=== PATIENT | male | born 1980 | race American Indian/Alaskan Native ===

== ENCOUNTER 2018-11-18 06:35 | Emergency (ER) | payer OTHER ==
[2018-11-18 07:10] LABS: Hematocrit 42.6 % (35.5-45.6); Hemoglobin 15.1 gm/dl (11.8-15.2); Mean Corpuscular HGB Conc 35 % (32-34); Mean Corpuscular Volume 90 fl (84-94); Platelet Count 237 K/mm3 (140-440); Red Blood Count 4.72 M/mm3 (3.65-5.03)
[2018-11-18 07:30] LABS: BUN/Creatinine Ratio 23; Blood Urea Nitrogen 14 mg/dL (9-20); Calcium 8.4 mg/dL (8.4-10.2); Hemolysis Index 8
[2018-11-18] MEDS ORDERED: THERAGRAN Tab PO ONE ×4 (08:36→17:39)
[2018-11-18] MEDS ORDERED: NACL 0.9% 1000 ML 1,000 ML IV ONE (08:36)
[2018-11-18] MEDS ORDERED: VITAMIN B-1 PO ONE ×2 (08:37→17:40)
[2018-11-18] MEDS ORDERED: Renal Caps PO ONE (08:39)
--- NOTE | 2018-11-18 10:59 | Emergency Department Report ---
ED General Adult HPI - General Chief complaint: Seizure Stated complaint: SEIZURE Time Seen by Provider: 11/18/18 08:35 Source: EMS Mode of arrival: Stretcher Limitations: No Limitations - History of Present Illness Initial comments: Patient brought to ED via PD found in the parking lot of as gas station laying on the ground. The patient states he was drinking with friends and denies head injury. -: Sudden Radiation: non-radiation Severity scale (0 -10): 0 Consistency: constant Improves with: none Worsens with: none Associated Symptoms: denies other symptoms Treatments Prior to Arrival: none - Related Data Allergies Allergy/AdvReac Type Severity Reaction Status Date / Time Unable to Assess Allergy Unverified 11/18/18 06:43 ED Review of Systems ROS: Stated complaint: SEIZURE Other details as noted in HPI Constitutional: denies: chills, fever Eyes: denies: eye pain, eye discharge, vision change ENT: denies: ear pain, throat pain Respiratory: denies: cough, shortness of breath, wheezing Cardiovascular: denies: chest pain, palpitations Endocrine: no symptoms reported Gastrointestinal: denies: abdominal pain, nausea, diarrhea Genitourinary: denies: urgency, dysuria Musculoskeletal: denies: back pain, joint swelling, arthralgia Skin: denies: rash, lesions Neurological: denies: headache, weakness, paresthesias Psychiatric: denies: anxiety, depression Hematological/Lymphatic: denies: easy bleeding, easy bruising ED Past Medical Hx - Past Medical History Previous Medical History?: Yes Hx Hypertension: Yes Hx Seizures: Yes Hx Psychiatric Treatment: Yes (depression) - Surgical History Additional Surgical History: unknown - Social History Smoking Status: Current Every Day Smoker Substance Use Type: Alcohol ED Physical Exam - General Limitations: No Limitations General appearance: alert, in no apparent distress, appears intoxicated, other (odor of alcohol) - Head Head exam: Present: atraumatic, normocephalic - Eye Eye exam: Present: normal appearance, PERRL, EOMI - ENT ENT exam: Present: mucous membranes moist - Neck Neck exam: Present: normal inspection - Respiratory Respiratory exam: Present: normal lung sounds bilaterally. Absent: respiratory distress, wheezes, rales - Cardiovascular Cardiovascular Exam: Present: regular rate, normal rhythm. Absent: systolic murmur, diastolic murmur, rubs, gallop - GI/Abdominal GI/Abdominal exam: Present: soft, normal bowel sounds. Absent: distended, tenderness - Rectal Rectal exam: Present: deferred - Extremities Exam Extremities exam: Present: normal inspection - Back Exam Back exam: Present: normal inspection - Neurological Exam Neurological exam: Present: alert, oriented X3, CN II-XII intact. Absent: motor sensory deficit - Psychiatric Psychiatric exam: Present: normal affect, normal mood, anxious - Skin Skin exam: Present: warm, dry, intact, normal color. Absent: rash ED Course Vital Signs 11/18/18 06:43 Temperature 97.6 F Pulse Rate 75 Respiratory 17 Rate Blood Pressure 128/85 Blood Pressure 128/85 [Left] O2 Sat by Pulse 97 Oximetry ED Medical Decision Making - Lab Data Result diagrams: 11/18/18 15:24 11/18/18 15:24 Lab Results 11/18/18 11/18/18 Range/Units 06:58 06:58 WBC 5.2 (4.5-11.0) K/mm3 RBC 4.72 (3.65-5.03) M/mm3 Hgb 15.1 (11.8-15.2) gm/dl Hct 42.6 (35.5-45.6) % MCV 90 (84-94) fl MCH 32 (28-32) pg MCHC 35 H (32-34) % RDW 16.0 H (13.2-15.2) % Plt Count 237 (140-440) K/mm3 Sodium 143 (137-145) mmol/L Potassium 3.8 (3.6-5.0) mmol/L Chloride 102.7 (98-107) mmol/L Carbon Dioxide 26 (22-30) mmol/L Anion Gap 18 mmol/L BUN 14 (9-20) mg/dL Creatinine 0.6 L (0.8-1.5) mg/dL Estimated GFR > 60 ml/min BUN/Creatinine Ratio 23 % Glucose 72 L (75-100) mg/dL Calcium 8.4 (8.4-10.2) mg/dL - Medical Decision Making 2012 applied Patient refused labs Examination of the patient at 1:05 PM: Patient expresses suicidal ideology with the plan of taking by mouth or jump into traffic. Patient states she has a history of paranoid schizophrenia which he initially did not endorse 1013 applied at 4:17p.m. Critical care attestation.: If time is entered above; I have spent that time in minutes in the direct care of this critically ill patient, excluding procedure time. ED Disposition Clinical Impression: Suicidal ideation Disposition: DC/TX-65 PSY HOSP/PSY UNIT Is pt being admited?: Yes Does the pt Need Aspirin: No Condition: Stable Referrals: EDER GOODRICH MD [Primary Care Provider] - 3-5 Days
--- NOTE | 2018-11-18 13:04 | Cat Scan Report ---
PROCEDURE: CT HEAD/BRAIN WO CON TECHNIQUE: Computerized tomography of the head was performed without contrast material. CT DOSE LENGTH PRODUCT: 920.5 mGy-cm. HISTORY: confusion COMPARISONS: None currently available. FINDINGS: There is no evidence for acute ischemia. There is no hemorrhage. There is no midline shift. There is no hydrocephalus. There is no mass. Age appropriate lenz-white matter attenuation is noted. There is no calvarial fracture. The temporal bones demonstrate aerated mastoid air cells. The middle ears appear unremarkable. Paranasal sinuses are unremarkable. Globes are intact. IMPRESSION: * No acute intracranial findings. This document is electronically signed by Pollo Stover MD., Nov 18 2018 01:02:19 PM ET
[2018-11-18 15:38] LABS: Basophils # (Auto) 0.1 K/mm3 (0.0-0.1); Basophils % (Auto) 1.1 % (0.0-1.8); Eosinophils % (Auto) 0.9 % (0.0-4.3); Hematocrit 45.8 % (35.5-45.6); Lymphocytes # (Auto) 1.7 K/mm3 (1.2-5.4); Lymphocytes % (Auto) 34.3 % (13.4-35.0); Mean Corpuscular HGB Conc 35 % (32-34); Mean Corpuscular Volume 90 fl (84-94); Monocytes # (Auto) 0.7 K/mm3 (0.0-0.8); Monocytes % (Auto) 14.9 % (0.0-7.3); Platelet Count 252 K/mm3 (140-440); Red Blood Count 5.08 M/mm3 (3.65-5.03)
[2018-11-18 16:03] LABS: Alanine Aminotransferase 32 units/L (7-56); Albumin 4.5 g/dL (3.9-5); BUN/Creatinine Ratio 18; Blood Urea Nitrogen 11 mg/dL (9-20); Calcium 8.9 mg/dL (8.4-10.2); Hemolysis Index 5
[2018-11-18] MEDS ORDERED: FOLVITE ONE (17:21)
[2018-11-18] MEDS ORDERED: VITAMIN B-1 ONE (17:25)
[2018-11-18 21:13] LABS: Bilirubin,Urine NEG (Negative); Blood,Urine NEG (Negative); Color,Urine Amber (Yellow); Hyaline Casts,Urine 1 /LPF; Mucus,Urine FEW /HPF
[2018-11-18 21:20] LABS: Amphetamine Screen,Urine PRESUMPTIVE NEGATIVE; Cocaine Screen,Urine PRESUMPTIVE NEGATIVE; Methadone Screen,Urine PRESUMPTIVE NEGATIVE; Opiate Screen,Urine PRESUMPTIVE NEGATIVE
[2018-11-18 21:35] LABS: Benzodiazepines Screen,Urine PRESUMPTIVE POSITIVE; Cannabinoid Screen,Urine PRESUMPTIVE POSITIVE
[2018-11-19] MEDS ORDERED: ZOFRAN ODT ONE (06:39)
--- NOTE | 2018-11-19 10:39 | Consultation ---
History of Present Illness - Reason for Consult Consult date: 11/19/18 Reason for consult: Mental Health Evaluation Requesting physician: ANNA HICKEY - Chief Complaint Chief complaint: "I am hopeless" - History of Present Psychiatric Illness 38 y.o. AA male who presented to the ER because he found on the ground near a gas station. Psychiatry Was consulted because the patient endorsed SI's. Today the patient is calm, but guarded during the assessment. He would answer some questions when asked. He stated, "My life is awful at this time. He was willing to discuss some things about his mental health. He acknowledged a previous suicide attempt by overdosing. He stated the he took Zoloft for depression and has a hx of substance abuse. He stated that his alcohol consumption (etoh) has increased. He was asked if he wanted to discuss in detail his life stressors, he declined. He continues to endorse SI's. He denies HI's and AVH's. He denies erratic sleep and a poor appetite. Medications and Allergies Allergies Allergy/AdvReac Type Severity Reaction Status Date / Time Unable to Assess Allergy Unverified 11/18/18 06:43 Past psychiatric history - Past Medical History Past Medical History: No medical history Past Surgical History: No surgical history - past Psychiatric treatment and history psychiatric treatment history: Several inpatient psy settings in the past. Denies a fam psy hx. Mental Status Exam - Vital signs Last Vital Signs Temp 97.5 F L 11/19/18 07:47 Pulse 71 11/19/18 07:47 Resp 18 11/19/18 07:47 BP 156/103 11/19/18 07:47 Pulse Ox 99 11/19/18 07:47 - Exam Narrative exam: ppearance: calm Behavior: poor eye contact Speech: regular rate and low tone Mood: guarded Affect: congruent to mood Thought Process: circumstantial Thought Content: denies HI's and AVH's Motor Activity: ambulatory Cognition: A/O x3 Insight: vague Judgment: poor Results Result Diagrams: 11/18/18 15:24 11/18/18 15:24 Abnormal lab results 11/18/18 11/18/18 11/18/18 Range/Units 15:24 15:24 15:24 RBC 5.08 H (3.65-5.03) M/mm3 Hgb 16.0 H (11.8-15.2) gm/dl Hct 45.8 H (35.5-45.6) % MCHC 35 H (32-34) % RDW 16.0 H (13.2-15.2) % [place] % (Auto) 14.9 H (0.0-7.3) % Creatinine 0.6 L (0.8-1.5) mg/dL Glucose 74 L (75-100) mg/dL AST 49 H (5-40) units/L Salicylates < 0.3 L (2.8-20.0) mg/dL Acetaminophen (10.0-30.0) ug/mL 11/18/18 Range/Units 15:24 RBC (3.65-5.03) M/mm3 Hgb (11.8-15.2) gm/dl Hct (35.5-45.6) % MCHC (32-34) % RDW (13.2-15.2) % [place] % (Auto) (0.0-7.3) % Creatinine (0.8-1.5) mg/dL Glucose (75-100) mg/dL AST (5-40) units/L Salicylates (2.8-20.0) mg/dL Acetaminophen < 5.0 L (10.0-30.0) ug/mL All other labs normal. Assessment and Plan Assessment and plan: Impression: MDD. Cannabis Use DO. Today the patient calm, but guarded during the assessment. The patient endorsed SI's without a plan. DDx: R/O Bipolar DO, Substance Induced Mood DO, Alcohol Use DO Recommendation/Plan: Continue 1013 and start Zoloft 50 mg PO daily for depression. Discussed possible suicidality/medication induced bhargavi with the patinet reference Zoloft, he verbalized understanding. Informed the patient's assigned nurse that the patient need 1:1 observation for safety. Dispo: The patient was referred to inpatient psy services. Will staff with Dr. Juanita Lloyd.
[2018-11-19] MEDS: ZOLOFT PO SCH (12:00)
[2018-11-19] MEDS: COZAAR PO SCH (19:34)
[2018-11-19] MEDS: NORVASC PO SCH (19:35)
[2018-11-19] MEDS ORDERED: NON-FORMULARY (Clonidine Hcl [Kapvay] 0.1 MG) PO SCH (20:00)
[2018-11-19] MEDS ORDERED: NEURONTIN PO SCH (22:00)
[2018-11-19] MEDS: NEURONTIN PO SCH (22:14)
[2018-11-19] MEDS: CATAPRES PO SCH (22:14)
[2018-11-20] MEDS: CATAPRES PO SCH ×3 (07:35→20:30)
[2018-11-20] MEDS: NEURONTIN PO SCH ×3 (07:35→20:30)
[2018-11-20] MEDS: NORVASC PO SCH (10:04)
[2018-11-20] MEDS: ZOLOFT PO SCH (10:04)
[2018-11-20] MEDS: COZAAR PO SCH (10:04)
--- NOTE | 2018-11-20 17:59 | Progress Note ---
Subjective - Reason for Consult Reason for consult: psych consult - Chief Complaint Chief complaint: 38 year old BM. Patient continues to note that he remains depressed with +SI. He isn't very open about the details. He remains with poor eye contact and voices no current withdrawal symptoms but states that he is withdrawing anyway. He does note concern over being homeless and not having any place to go. Mental Status Exam - Vital signs Last Vital Signs Temp 97.8 F 11/20/18 14:00 Pulse 75 11/20/18 15:59 Resp 18 11/20/18 15:59 BP 111/66 11/20/18 15:59 Pulse Ox 98 11/20/18 15:59 - Exam Orientation: time, place, person Affect: normal Mood: sad Thought content: other (impoverished) Thought Process: Intact Perceptions: none Speech: normal rate and pattern Concentration: other (guarded) Motor activity: lethargic Level of consciousness: alert Memory: Intact Interaction: guarded Assessment and Plan Assessment and Plan Assessment and plan: Patient continues to be apathetic with his interaction with us. He continues to note depression with a helpless attitude. Impression: MDD. Cannabis Use DO. Recommendation/Plan: Continue 1013 and start Zoloft 50 mg PO daily for depression. Dispo: The patient was referred to inpatient psy services.
[2018-11-20] MEDS ORDERED: IBUPROFEN PO ONE (21:09)
[2018-11-21] MEDS: CATAPRES PO SCH ×3 (10:15→21:48)
[2018-11-21] MEDS: ZOLOFT PO SCH (10:15)
[2018-11-21] MEDS: NORVASC PO SCH (10:15)
[2018-11-21] MEDS: COZAAR PO SCH (10:15)
[2018-11-21] MEDS: NEURONTIN PO SCH ×3 (10:15→21:48)
--- NOTE | 2018-11-21 13:03 | Progress Note ---
Subjective - Reason for Consult Consult date: 11/21/18 Reason for consult: Psychiatry Follow-up - Chief Complaint Chief complaint: "I have a lot going on" 38 y.o. AA male who presented to the ER because he found on the ground near a gas station. Psychiatry was consulted because the patient endorsed SI's. Today the patient is calm during the assessment. He would not confirm or deny SI's when asked. He stated that is having difficulty sleeping at night. He denies HI's and AVH's. He denies any side effects of his medication. Mental Status Exam - Vital signs Last Vital Signs Temp 97.4 F L 11/21/18 08:13 Pulse 66 11/21/18 08:13 Resp 18 11/21/18 08:13 BP 129/67 11/21/18 08:13 Pulse Ox 98 11/21/18 08:13 - Exam Narrative exam: ppearance: calm Behavior: poor eye contact Speech: regular rate and low tone Mood: "depressed" Affect: congruent to mood Thought Process: circumstantial Thought Content: denies HI's and AVH's Motor Activity: ambulatory Cognition: A/O x3 Insight: variable Judgment: variable Assessment and Plan Impression: MDD. Cannabis Use DO. Today the patient calm during the assessment. DDx: R/O Bipolar DO, Substance Induced Mood DO, Alcohol Use DO Recommendation/Plan: Continue 1013 and Zoloft 50 mg PO daily for depression. Start Benadryl 25 mg PO HS for sleep. Discussed possible suicidality/medication induced bhargavi with the patient reference Zoloft, he verbalized understanding. Dispo: The patient was referred to inpatient psy services. Will staff with Dr. Juanita Lloyd.
[2018-11-21] MEDS: BENADRYL PO SCH (21:48)
[2018-11-22] MEDS: CATAPRES PO SCH ×3 (09:23→20:23)
[2018-11-22] MEDS: NEURONTIN PO SCH ×3 (09:23→20:23)
[2018-11-22] MEDS: ZOLOFT PO SCH (11:26)
[2018-11-22] MEDS: NORVASC PO SCH (11:26)
[2018-11-22] MEDS: COZAAR PO SCH (11:26)
[2018-11-22] MEDS: BENADRYL PO SCH (22:05)
[2018-11-23] MEDS: NEURONTIN PO SCH ×3 (10:30→22:23)
[2018-11-23] MEDS: CATAPRES PO SCH ×3 (10:30→22:22)
[2018-11-23] MEDS: COZAAR PO SCH (10:59)
[2018-11-23] MEDS: NORVASC PO SCH (10:59)
[2018-11-23] MEDS: ZOLOFT PO SCH (11:00)
--- NOTE | 2018-11-23 12:45 | Progress Note ---
Subjective - Reason for Consult Consult date: 11/23/18 Reason for consult: follow up - Chief Complaint Chief complaint: "the same" 38 y.o. AA male who presented to the ER because he found on the ground near a gas station. Psychiatry was consulted because the patient endorsed SI's. Today the patient is calm during the assessment. He reports having suicidal thoughts and says he is the same as when he came in. He wanted to know where he would go for treatment. He denies HI's and AVH's. He denies any side effects of his medication. Mental Status Exam - Vital signs Last Vital Signs Temp 97.4 F L 11/23/18 08:08 Pulse 69 11/23/18 10:59 Resp 18 11/23/18 08:08 BP 144/99 11/23/18 10:59 Pulse Ox 97 11/23/18 08:08 Assessment and Plan Appearance: calm Behavior: poor eye contact Speech: regular rate and low tone Mood: "depressed" Affect: congruent to mood Thought Process: circumstantial Thought Content: reports suicidal ideation. denies HI's and AVH's Motor Activity: ambulatory Cognition: A/O x3 Insight: variable Judgment: variable Assessment and Plan Impression: MDD. Cannabis Use DO. Today the patient calm during the assessment. DDx: R/O Bipolar DO, Substance Induced Mood DO, Alcohol Use DO Recommendation/Plan: Continue 1013 and Zoloft 50 mg PO daily for depression. Start Benadryl 25 mg PO HS for sleep. Discussed possible suicidality/medication induced bhargavi with the patient reference Zoloft, he verbalized understanding. Dispo: The patient was referred to inpatient psy services. Will staff with Dr. Juanita Lloyd.
[2018-11-23] MEDS: BENADRYL PO SCH (22:23)
[2018-11-24] MEDS: NEURONTIN PO SCH ×3 (08:51→20:00)
[2018-11-24] MEDS: CATAPRES PO SCH ×3 (08:51→20:00)
[2018-11-24] MEDS: NORVASC PO SCH (11:12)
[2018-11-24] MEDS: COZAAR PO SCH (11:13)
[2018-11-24] MEDS: ZOLOFT PO SCH (11:15)
[2018-11-24] MEDS ORDERED: IBUPROFEN PO ONE (13:18)
--- NOTE | 2018-11-24 18:44 | Progress Note ---
Subjective - Reason for Consult Consult date: 11/24/18 Reason for consult: follow up - Chief Complaint Chief complaint: "the same" 38 y.o. AA male who presented to the ER because he found on the ground near a gas station. Psychiatry was consulted because the patient endorsed SI's. Today the patient is calm during the assessment. He reports having suicidal thoughts and says he is the same as when he came in. He talked about his history and severed relationships with family and friends. He talked about being homeless for 13 years and how hopeless he is. He has been to multiple programs, ministries, transitional homes, and has always ended up back on the streets. He talked about how he fantasizes about how his will affect his family and friends and then says they might care when he dies. He denies HI's and AVH's. He denies any side effects of his medication. Appearance: calm Behavior: poor eye contact Speech: regular rate and low tone Mood: "depressed" Affect: congruent to mood Thought Process: circumstantial Thought Content: reports suicidal ideation. denies HI's and AVH's Motor Activity: ambulatory Cognition: A/O x3 Insight: variable Judgment: variable Mental Status Exam - Vital signs Last Vital Signs Temp 97.6 F 11/24/18 14:29 Pulse 70 11/24/18 15:01 Resp 18 11/24/18 14:29 BP 119/78 11/24/18 15:01 Pulse Ox 99 11/24/18 14:29 Assessment and Plan Impression: MDD. Cannabis Use DO. Today the patient calm during the assessment. DDx: R/O Bipolar DO, Substance Induced Mood DO, Alcohol Use DO Recommendation/Plan: Continue 1013 and Zoloft 50 mg PO daily for depression. Start Benadryl 25 mg PO HS for sleep. Discussed possible suicidality/medication induced bhargavi with the patient reference Zoloft, he verbalized understanding. Dispo: The patient was referred to inpatient psy services. Will staff with Dr. Juanita Lloyd.
[2018-11-24] MEDS ORDERED: REMERON PO ONE (19:00)
[2018-11-24] MEDS: BENADRYL PO SCH (22:00)
[2018-11-24] MEDS ORDERED: REMERON ONE (22:56)
--- NOTE | 2018-11-25 09:38 | Progress Note ---
Subjective - Reason for Consult Consult date: 11/25/18 Reason for consult: Psychiatry Follow-up - Chief Complaint Chief complaint: "I need help bad" 38 y.o. AA male who presented to the ER because he found on the ground near a gas station. Psychiatry was consulted because the patient endorsed SI's. Today the patient is calm and cooperative during the assessment. He stated that he is "hopeless" about his situation at this time. He stated that he tried several "things" reference his mental health and nothing worked. He denies HI's and AVH's. He denies any side effects of his medications. Mental Status Exam - Vital signs Last Vital Signs Temp 97.5 F L 11/25/18 08:38 Pulse 71 11/25/18 08:38 Resp 20 11/25/18 08:38 BP 138/99 11/25/18 08:38 Pulse Ox 99 11/25/18 08:38 - Exam Narrative exam: MSE: Appearance: calm, cooperative Behavior: regular eye contact Speech: regular rate and low tone Mood: withdrawn Affect: congruent to mood Thought Process: circumstantial Thought Content: denies HI's and AVH's Motor Activity: ambulatory Cognition: A/O x3 Insight: variable Judgment: poor Assessment and Plan Impression: MDD. Cannabis Use DO. Today the patient calm and cooperative during the assessment. DDx: R/O Bipolar DO, Substance Induced Mood DO, Alcohol Use DO Recommendation/Plan: Continue 1013, Zoloft 50 mg PO daily for depression, and Benadryl 25 mg PO HS for sleep. Discussed possible suicidality/medication induced bhargavi with the patient reference Zoloft, he verbalized understanding. Dispo: The patient was accepted at [facility] for inpatient psy services pending transport time.. Will staff with Dr. Juanita Lloyd.
[2018-11-25] MEDS: CATAPRES PO SCH ×2 (10:43→15:05)
[2018-11-25] MEDS: ZOLOFT PO SCH (10:44)
[2018-11-25] MEDS: NEURONTIN PO SCH ×2 (10:44→17:22)
[2018-11-25 14:41] VITALS: BP 121/73
[2018-11-25] MEDS: COZAAR PO SCH (15:04)
[2018-11-25] MEDS: NORVASC PO SCH (15:04)
[2018-11-25] MEDS ORDERED: REMERON PO SCH (22:00)
== END 2018-11-25 17:45 ==
LOC: EEVIPCON 06:35 → ED 06:35
DX: F32.9 Major depressive disorder, single episode, unspecified (principal); F12.10 Cannabis abuse, uncomplicated; I10 Essential (primary) hypertension; F17.200 Nicotine dependence, unspecified, uncomplicated; Z88.8 Allergy status to other drugs, medicaments and biological substances
CPT/HCPCS: 36415; 70450; 80048; 80053; 80307; 81001; 82962; 85025; 85027; 90732; 99285; G0480; 80320; J7030; Q0162

== ENCOUNTER 2019-02-21 17:28 | Emergency (ER) | payer SELFPAY ==
--- NOTE | 2019-02-21 18:04 | Event Note ---
ED Screening Note Date of service: 02/21/19 Time: 18:01 ED Screening Note: This is a 39 y.o. M. that presents to the ER with thoughts of suicide for 3 days. Patient states [facility] took away his prescribed medication. Reports plan is to take pills to end his life. Denies HI This initial assessment/diagnostic orders/clinical plan/treatment(s) is/are subject to change based on patients health status, clinical progression and re- assessment by fellow clinical providers in the ED. Further treatment and workup at subsequent clinical providers discretion. Patient/guardian urged not to elope from the ED as their condition may be serious if not clinically assessed and managed. Initial orders include: Labs
[2019-02-21 19:06] LABS: Bacteria,Urine 1+ /HPF (Negative); Bilirubin,Urine NEG (Negative); Blood,Urine SM (Negative); Color,Urine Straw (Yellow); Protein,Urine <15 mg/dL mg/dL (Negative)
[2019-02-21 19:12] LABS: Amphetamine Screen,Urine PRESUMPTIVE NEGATIVE; Benzodiazepines Screen,Urine PRESUMPTIVE NEGATIVE; Cannabinoid Screen,Urine PRESUMPTIVE NEGATIVE; Cocaine Screen,Urine PRESUMPTIVE NEGATIVE; Methadone Screen,Urine PRESUMPTIVE NEGATIVE; Opiate Screen,Urine PRESUMPTIVE NEGATIVE
[2019-02-21 19:28] LABS: Basophils # (Auto) 0.1 K/mm3 (0.0-0.1); Basophils % (Auto) 1.5 % (0.0-1.8); Eosinophils # (Auto) 0.1 K/mm3 (0.0-0.4); Eosinophils % (Auto) 2.3 % (0.0-4.3); Hematocrit 43.4 % (35.5-45.6); Lymphocytes # (Auto) 1.5 K/mm3 (1.2-5.4); Lymphocytes % (Auto) 36.7 % (13.4-35.0); Mean Corpuscular HGB Conc 35 % (32-34); Mean Corpuscular Volume 94 fl (84-94); Monocytes # (Auto) 0.5 K/mm3 (0.0-0.8); Platelet Count 190 K/mm3 (140-440); Red Blood Count 4.63 M/mm3 (3.65-5.03); Red Cell Distribution Width 15.9 % (13.2-15.2)
--- NOTE | 2019-02-21 19:46 | Emergency Department Report ---
ED Psych HPI - General Chief Complaint: Psych Stated Complaint: SI Time Seen by Provider: 02/21/19 18:01 Source: patient Mode of arrival: Ambulatory - History of Present Illness Initial Comments: 39 yo M with hx of depression and bipolar disorder presents to ED with suicidal ideations since his birthday, 2 days ago. Pt reports plan to overdose on pills. Pt states out of psych meds x 3 weeks. MD Complaint: suicidal ideation -: days(s) (2) Associated Psychiatric Symptoms: depression, suicidal ideation History of same: Yes Quality: constant Improves With: none Worsens With: none Context: not taking psychiatric Associated Symptoms: denies other symptoms Treatments Prior to Arrival: none If Self Harm: has plan (overdose) - Related Data Home Medications Medication Instructions Recorded Confirmed Last Taken Clonidine HCl [Kapvay] 0.1 mg PO TID 11/19/18 02/21/19 Unknown Gabapentin [Gralise] 300 mg PO QHS 11/19/18 02/21/19 Unknown Losartan [Cozaar] 50 mg PO QDAY 11/19/18 02/21/19 Unknown Multivitamin [Daily Multiple 1 each PO DAILY 11/19/18 02/21/19 Unknown Vitamin] amLODIPine [Norvasc] 10 mg PO DAILY 11/19/18 02/21/19 Unknown buPROPion XL [Wellbutrin Xl] 150 mg PO QAM 11/19/18 02/21/19 Unknown Mirtazapine [Remeron] 30 mg PO QHS 11/25/18 02/21/19 Unknown Allergies Allergy/AdvReac Type Severity Reaction Status Date / Time quetiapine [From Seroquel] AdvReac Unknown Verified 11/25/18 10:50 ED Review of Systems ROS: Stated complaint: SI Other details as noted in HPI Comment: All other systems reviewed and negative Psychiatric: depression, suicidal thoughts. denies: auditory hallucinations, visual hallucinations, homicidal thoughts ED Past Medical Hx - Past Medical History Previous Medical History?: Yes Hx Hypertension: Yes Hx Seizures: Yes Hx Psychiatric Treatment: Yes (depression) - Surgical History Past Surgical History?: No Additional Surgical History: unknown - Social History Smoking Status: Current Every Day Smoker Substance Use Type: Alcohol, Marijuana - Medications Home Medications: Home Medications Medication Instructions Recorded Confirmed Last Taken Type Clonidine HCl [Kapvay] 0.1 mg PO TID 11/19/18 02/21/19 Unknown History Gabapentin [Gralise] 300 mg PO QHS 11/19/18 02/21/19 Unknown History Losartan [Cozaar] 50 mg PO QDAY 11/19/18 02/21/19 Unknown History Multivitamin [Daily Multiple 1 each PO DAILY 11/19/18 02/21/19 Unknown History Vitamin] amLODIPine [Norvasc] 10 mg PO DAILY 11/19/18 02/21/19 Unknown History buPROPion XL [Wellbutrin Xl] 150 mg PO QAM 11/19/18 02/21/19 Unknown History Mirtazapine [Remeron] 30 mg PO QHS 11/25/18 02/21/19 Unknown History ED Physical Exam - General Limitations: No Limitations General appearance: alert, in no apparent distress - Head Head exam: Present: atraumatic, normocephalic - Eye Eye exam: Present: normal appearance, PERRL, EOMI - ENT ENT exam: Present: mucous membranes moist - Neck Neck exam: Present: normal inspection - Respiratory Respiratory exam: Present: normal lung sounds bilaterally. Absent: respiratory distress - Cardiovascular Cardiovascular Exam: Present: regular rate, normal rhythm - GI/Abdominal GI/Abdominal exam: Absent: distended - Extremities Exam Extremities exam: Present: normal inspection - Neurological Exam Neurological exam: Present: alert, oriented X3 - Psychiatric Psychiatric exam: Present: depressed, suicidal ideation - Skin Skin exam: Present: warm, dry, intact, normal color ED Course Vital Signs 02/21/19 02/21/19 18:01 19:45 Temperature 98.6 F 98 F Pulse Rate 87 76 Respiratory 16 18 Rate Blood Pressure 139/91 Blood Pressure 136/91 [Left] O2 Sat by Pulse 99 99 Oximetry ED Medical Decision Making - Lab Data Result diagrams: 02/21/19 18:38 02/21/19 18:38 - Medical Decision Making 39 yo M with hx of depression and bipolar disorder presents to ED with suicidal ideations that began 2 days ago. Pt reports plan to overdose on pills. Patient placed on a 1013. Labs drawn. He is medically clear for mental health evaulation. Will dispo per psych. Critical care attestation.: If time is entered above; I have spent that time in minutes in the direct care of this critically ill patient, excluding procedure time. ED Disposition Clinical Impression: Suicidal ideation, Medical clearance for psychiatric admission Disposition: DC/TX-65 PSY HOSP/PSY UNIT Is pt being admited?: No Condition: Stable
[2019-02-21 19:49] LABS: BUN/Creatinine Ratio 10; Blood Urea Nitrogen 7 mg/dL (9-20); Calcium 9.4 mg/dL (8.4-10.2); Hemolysis Index 20
--- NOTE | 2019-02-22 10:15 | Consultation ---
History of Present Illness - Reason for Consult Consult date: 02/22/19 Reason for consult: Mental Health Evaluation Requesting physician: MARCI GARCIA - Chief Complaint Chief complaint: 'I have been feeling bad" - History of Present Psychiatric Illness 39 y.o. AA male who presented to the ER for SI's. This patient is known to me. Today the patient was calm, but somewhat guarded during the assessment. He stated that he is "going through something." He would not elaborate what the something is when asked. He did acknowledge that he was homeless and depressed. He rate his depression 10/10, with 10 being the worse. He acknowledged a past suicide attempt by overdosing on pills. He denies HI's and AVH's. He denies erratic sleep and a poor appetite. Medications and Allergies Allergies Allergy/AdvReac Type Severity Reaction Status Date / Time quetiapine [From Seroquel] AdvReac Unknown Verified 11/25/18 10:50 Home Medications Medication Instructions Recorded Confirmed Last Taken Type Clonidine HCl [Kapvay] 0.1 mg PO TID 11/19/18 02/21/19 Unknown History Gabapentin [Gralise] 300 mg PO QHS 11/19/18 02/21/19 Unknown History Losartan [Cozaar] 50 mg PO QDAY 11/19/18 02/21/19 Unknown History Multivitamin [Daily Multiple 1 each PO DAILY 11/19/18 02/21/19 Unknown History Vitamin] amLODIPine [Norvasc] 10 mg PO DAILY 11/19/18 02/21/19 Unknown History buPROPion XL [Wellbutrin Xl] 150 mg PO QAM 11/19/18 02/21/19 Unknown History Mirtazapine [Remeron] 30 mg PO QHS 11/25/18 02/21/19 Unknown History levETIRAcetam [Keppra TAB] 1,000 mg PO BID 02/22/19 02/22/19 02/21/19 History Past psychiatric history - Past Medical History Past Medical History: No medical history Past Surgical History: No surgical history - past Psychiatric treatment and history psychiatric treatment history: Hx of depression and substance abuse. Denies a fam psy hx. - Social History Social history: other (Homeless) Mental Status Exam - Vital signs Last Vital Signs Temp 97.7 F 08/10/19 03:00 Pulse 59 L 02/22/19 03:00 Resp 18 02/22/19 03:00 BP 116/76 02/22/19 03:00 Pulse Ox 99 02/22/19 03:00 - Exam Narrative exam: appearance: calm Behavior: poor eye contact Speech: regular rate and low tone Mood: somewhat guarded Affect: congruent to mood Thought Process: circumstantial Thought Content: denies HI's and AVH's Motor Activity: ambulatory Cognition: A/O x3 Insight: vague Judgment: poor Results Result Diagrams: 02/21/19 18:38 02/21/19 18:38 Abnormal lab results 02/21/19 02/21/19 02/21/19 Range/Units 18:38 18:38 18:38 WBC (4.5-11.0) K/mm3 MCH (28-32) pg MCHC (32-34) % RDW (13.2-15.2) % Lymph % (Auto) (13.4-35.0) % [place] % (Auto) (0.0-7.3) % BUN 7 L (9-20) mg/dL Creatinine 0.7 L (0.8-1.5) mg/dL Glucose 113 H (75-100) mg/dL Salicylates < 0.3 L (2.8-20.0) mg/dL Acetaminophen < 5.0 L (10.0-30.0) ug/mL 02/21/19 Range/Units 18:38 WBC 4.2 L (4.5-11.0) K/mm3 MCH 33 H (28-32) pg MCHC 35 H (32-34) % RDW 15.9 H (13.2-15.2) % Lymph % (Auto) 36.7 H (13.4-35.0) % [place] % (Auto) 12.0 H (0.0-7.3) % BUN (9-20) mg/dL Creatinine (0.8-1.5) mg/dL Glucose (75-100) mg/dL Salicylates (2.8-20.0) mg/dL Acetaminophen (10.0-30.0) ug/mL All other labs normal. Assessment and Plan Assessment and plan: Impression: MDD. Today the patient was calm, but somewhat guarded during the assessment. The patient endorsed SI's. DDx: Bipolar DO Recommendation/Plan: Continue 1013 and start Zoloft 50 mg PO daily for depression. Discussed possible suicidality/medication induced bhargavi with the helen boss reference Zoloft, he verbalized understanding. Ordered line of sight for safety. Dispo: The patient was referred to inpatient psy services. Staffed with Dr. Juanita Lloyd.
[2019-02-22] MEDS ORDERED: NON-FORMULARY (Levetiracetam [Keppra Tab] 1,000 MG) PO SCH (10:30)
[2019-02-22] MEDS: ZOLOFT PO SCH (10:49)
[2019-02-22] MEDS: KEPPRA PO SCH ×2 (10:49→22:25)
[2019-02-22] MEDS: COZAAR PO SCH (10:49)
[2019-02-22] MEDS: NORVASC PO SCH (10:49)
[2019-02-23 09:44] VITALS: BP 147/96
[2019-02-23] MEDS: COZAAR PO SCH (09:45)
[2019-02-23] MEDS: NORVASC PO SCH (09:46)
[2019-02-23] MEDS: KEPPRA PO SCH (09:46)
[2019-02-23] MEDS: ZOLOFT PO SCH (09:46)
== END 2019-02-23 09:59 ==
LOC: ED 17:28 → EEVIPCON 17:28 → ED 02-23 09:59
DX: F31.9 Bipolar disorder, unspecified (principal); R45.851 Suicidal ideations; I10 Essential (primary) hypertension; F17.200 Nicotine dependence, unspecified, uncomplicated; F12.10 Cannabis abuse, uncomplicated; Z88.8 Allergy status to other drugs, medicaments and biological substances; Z79.899 Other long term (current) drug therapy
CPT/HCPCS: 36415; 80048; 80307; 80320; 81001; 85025; 99285; G0480